=== PATIENT | female | born 1990 | race Hispanic/Latino ===

== ENCOUNTER 2017-09-06 16:06 | Emergency (ER) | payer OTHER ==
[2017-09-06 16:36] LABS: Urine Blood 1+ (NEG); Urine Glucose NEGATIVE (NEG); Urine Protein NEGATIVE (NEG); Urine Specific Gravity 1.015 (1.005-1.030)
[2017-09-06 16:51] LABS: Urine Bacteria LOADED /HPF (<20); Urine Culture Reflex Order NOT NEEDED
[2017-09-06] MEDS ORDERED: KETOROLAC 30 MG/ML INJ ONE (16:56)
[2017-09-06 17:09] LABS: Absolute Lymphocytes (CBC) 2.1 K/uL (0.7-4.9); Absolute Monocytes 0.4 K/uL (0.1-1.3); Absolute Neutrophil 3.7 K/uL (1.8-8.0); Basophils % 0.3 % (0-1.3); Eosinophils % 0.2 % (0-4.4); Hematocrit 31.5 % (36.0-45.0); Lymphocytes % 34.5 % (15.3-44.8); MCH 33.5 pg (27.0-35.0); MCV 100.3 fL (80-100); MPV 8.9 fL (7.6-11.3); RBC Red Blood Cell Count 3.14 M/uL (3.86-4.86)
[2017-09-06] MEDS ORDERED: PROMETHAZINE 25 MG/ML VIAL ONE (17:11)
[2017-09-06] MEDS ORDERED: NA CHLORIDE 0.9% 1,000 ML ONE (17:11)
[2017-09-06 17:15] LABS: BUN Blood Urea Nitrogen 8 mg/dL (6-20); Bicarbonate 25 mEq/L (21-31); Glucose Level 168 mg/dL (65-120); Potassium 3.4 mEq/L (3.6-5.0); Sodium Level 133 mEq/L (135-145)
[2017-09-06 17:31] LABS: Blood Morphology Comment NOT SEEN (NOT SEEN); Platelet Estimate DECR; Urine White Blood Cell Casts OK
--- NOTE | 2017-09-06 17:46 | ER ---
Nurse's Notes [facility] Name: Michell Dias Age: 27 yrs Sex: Female : 1990 Arrival Date: 09/06/2017 Time: 16:08 Bed 28 Private MD: Diagnosis: Headache;Vitamin B12 deficiency anemia;Urinary tract infection, site not specified Presentation: 09/06 16:09 Presenting complaint: Patient states: referred from Urgent Care, headache that started hj Marshall night and today i had chills; reports nausea and vomiting; denies fever;. Transition of care: patient was not received from another setting of care. Onset of symptoms was September 06, 2017. Care prior to arrival: None. 16:09 Method Of Arrival: Ambulatory hj 16:09 Acuity: STEFFANIE 3 hj Triage Assessment: 16:11 Headache History: Denies prior headaches. General: Appears in no apparent distress. hj uncomfortable, Behavior is calm, cooperative, appropriate for age. Pain: Pain currently is 9 out of 10 on a pain scale. Pain began 2-3 days ago. Also complains of nausea. Neuro: Level of Consciousness is awake, alert, obeys commands, Oriented to person, place, time, situation, Appropriate for age. 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 - Social history:: Smoking status: Patient/guardian denies using tobacco. Screenin:11 Abuse screen: Denies threats or abuse. Denies injuries from another. Nutritional hj screening: No deficits noted. Tuberculosis screening: No symptoms or risk factors identified. Fall Risk None identified. Assessment: 16:25 General: Appears in no apparent distress. Behavior is calm, cooperative, appropriate lk1 for age. Pain: Complains of pain in head Pain currently is 6 out of 10 on a pain scale. Neuro: Level of Consciousness is awake, alert, obeys commands, Oriented to person, place, time, situation. 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 Full function Gait is steady, Speech is normal, Facial symmetry appears normal. Cardiovascular: Capillary refill is brisk Patient's skin is warm and dry. Respiratory: Airway is patent Respiratory effort is even, unlabored, Respiratory pattern is regular, symmetrical. GI: Abdomen is non-distended. GI: Reports nausea, vomiting. : No signs and/or symptoms were reported regarding the genitourinary system. EENT: No signs and/or symptoms were reported regarding the EENT system. Derm: No signs and/or symptoms reported regarding the dermatologic system. Musculoskeletal: No signs and/or symptoms reported regarding the musculoskeletal system. Vital Signs: 16:12 BP 104 / 70; Pulse 87; Resp 18; Temp 97.9(TE); Pulse Ox 100% on R/A; Weight 79.83 kg; hj Height 5 ft. 7 in. (170.18 cm); Pain 9/10; 17:30 BP 107 / 64; Pulse 77; Resp 15; Pulse Ox 100% ; Pain 4/10; lk1 18:20 BP 111 / 72; Pulse 74; Resp 14; Pulse Ox 100% on R/A; Pain 0/10; lk1 16:12 Body Mass Index 27.56 (79.83 kg, 170.18 cm) hj [place] Coma Score: 17:47 Eye Response: spontaneous(4). Verbal Response: oriented(5). Motor Response: obeys snw commands(6). Total: 15. ED Course: 16:08 Patient arrived in ED. hj 16:10 Olimpia Marti F[facility]-C [facility]. snw 16:10 Nile Campoverde MD is Attending Physician. snw 16:10 Triage completed. hj 16:11 Arm band placed on right wrist. hj 16:20 Mahsa Hogan, ALEXEI is Primary Nurse. lk1 17:03 Inserted saline lock: 22 gauge in left antecubital area, using aseptic technique. Blood lk1 collected. 17:28 Notified Nurse Practitioner and/or Physician Car Rental Manager of a critical lab result(s), plt la1 91. 18:34 No provider procedures requiring assistance completed. IV discontinued, intact, lk1 bleeding controlled, No redness/swelling at site. Pressure dressing applied. 18:36 Patient has correct armband on for positive identification. Bed in low position. Call lk1 light in reach. Adult w/ patient. Administered Medications: 16:38 Drug: TORadol 60 mg Route: IM; Site: left gluteus; lk1 17:00 Follow up: Response: No adverse reaction; Pain is decreased lk1 18:27 Follow up: Response: No adverse reaction lk1 16:58 Drug: NS 0.9% 1000 ml Route: IV; Rate: 1 bolus; Site: left antecubital; lk1 17:45 Follow up: Response: No adverse reaction; IV Status: Completed infusion lk1 16:58 Drug: Phenergan 6.25 mg Route: IVP; Site: left antecubital; lk1 17:10 Follow up: Response: No adverse reaction; Nausea is decreased lk1 17:20 Drug: Rocephin - (cefTRIAXone) 1 grams Route: IVPB; Infused Over: 30 mins; Site: left lk1 antecubital; 17:50 Follow up: Response: No adverse reaction; IV Status: Completed infusion lk1 18:10 Drug: Cyanocobalamin 1000 mcg Route: IM; Site: right gluteus; lk1 18:26 Follow up: Response: No adverse reaction lk1 Outcome: 17:45 Discharge ordered by MD. morse 18:35 Discharged to home ambulatory. lk1 18:35 Condition: good 18:35 Discharge instructions given to patient, family, Instructed on discharge instructions, follow up and referral plans. medication usage, safety practices, Demonstrated understanding of instructions, follow-up care, medications, Prescriptions given X 3. 18:52 Patient left the ED. lk1 Addendum: 09/09/2017 11:30 Addendum: Culture Results: Positive urine culture. Phone call Attempt #1 Attempted to s s call patient, no answer left voicemail. 17:58 Addendum: Culture Results: patient called back and reports that she is no longer having s s any S/S of UTI and plans to follow up with PCP soon. Signatures: Olimpia Marti, PRODUCT LISTER-C PRODUCT LISTER-Csnw Cristina Mack RN ALEXEI ss Brent Parks RN RN la1 Mookie Ryan RN RN hj Kluge, Leah, RN RN lk1 Corrections: (The following items were deleted from the chart) 09/06 16:14 16:12 Pulse 87bpm; Resp 18bpm; Pulse Ox 100% RA; Temp 97.9F Temporal; 79.83 kg; Height hj 5 ft. 7 in.; BMI: 27.5; Pain 9/10; hj
--- NOTE | 2017-09-06 17:46 | EDPHYS ---
Physician Documentation [facility] Name: Michell Dias Age: 27 yrs Sex: Female : 1990 Arrival Date: 09/06/2017 Time: 16:08 Bed 28 Private MD: ED Physician Nile Campoverde HPI: 09/06 16:49 This 27 yrs old Female presents to ER via Ambulatory with complaints of snw Headache. 16:49 The patient complains of pain to the forehead. The patient describes the headache as snw constant, a pressure. Onset: The symptoms/episode began/occurred suddenly, 3 day(s) ago, and became persistent. Associated signs and symptoms: Pertinent positives: vomited x 1 this am, no trauma, no fever. Severity of symptoms: At its worst the pain was moderate. Headache History: Denies prior headaches. The symptoms are alleviated by nothing. It is unknown whether or not the patient has had similar symptoms in the past. one month ago, dx with uti, no meds, on control, no medication changes. 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 - Social history:: Smoking status: Patient/guardian denies using tobacco. ROS: 16:49 Eyes: Negative for injury, pain, redness, and discharge, ENT: Negative for injury, snw pain, and discharge, Neck: Negative for injury, pain, and swelling, Cardiovascular: Negative for chest pain, palpitations, and edema, Respiratory: Negative for shortness of breath, cough, wheezing, and pleuritic chest pain, Abdomen/GI: Negative for abdominal pain, nausea, vomiting, diarrhea, and constipation, Back: Negative for injury and pain, : Negative for injury, bleeding, discharge, and swelling, MS/Extremity: Negative for injury and deformity, Skin: Negative for injury, rash, and discoloration. 16:49 Constitutional: Positive for body aches, fatigue, malaise. 16:49 Neuro: Positive for headache. Exam: 16:49 Constitutional: This is a well developed, well nourished patient who is awake, alert, snw and in no acute distress. Head/Face: Normocephalic, atraumatic. Eyes: Pupils equal round and reactive to light, extra-ocular motions intact. Lids and lashes normal. Conjunctiva and sclera are non-icteric and not injected. Cornea within normal limits. Periorbital areas with no swelling, redness, or edema. ENT: Nares patent. No nasal discharge, no septal abnormalities noted. Tympanic membranes are normal and external auditory canals are clear. Oropharynx with no redness, swelling, or masses, exudates, or evidence of obstruction, uvula midline. Mucous membranes moist. Neck: Trachea midline, no thyromegaly or masses palpated, and no cervical lymphadenopathy. Supple, full range of motion without nuchal rigidity, or vertebral point tenderness. No Meningismus. Chest/axilla: Normal chest wall appearance and motion. Nontender with no deformity. No lesions are appreciated. Cardiovascular: Regular rate and rhythm with a normal S1 and S2. No gallops, murmurs, or rubs. Normal PMI, no JVD. No pulse deficits. Respiratory: Lungs have equal breath sounds bilaterally, clear to auscultation and percussion. No rales, rhonchi or wheezes noted. No increased work of breathing, no retractions or nasal flaring. Abdomen/GI: Soft, non-tender, with normal bowel sounds. No distension or tympany. No guarding or rebound. No evidence of tenderness throughout. Back: No spinal tenderness. No costovertebral tenderness. Full range of motion. Skin: Warm, dry with normal turgor. Normal color with no rashes, no lesions, and no evidence of cellulitis. MS/ Extremity: Pulses equal, no cyanosis. Neurovascular intact. Full, normal range of motion. 16:49 Neuro: Orientation: is normal, Mentation: is normal, Sensation: is normal, Babinski testing is normal, seizure activity, is not displayed by the patient. Vital Signs: 16:12 BP 104 / 70; Pulse 87; Resp 18; Temp 97.9(TE); Pulse Ox 100% on R/A; Weight 79.83 kg; hj Height 5 ft. 7 in. (170.18 cm); Pain 9/10; 17:30 BP 107 / 64; Pulse 77; Resp 15; Pulse Ox 100% ; Pain 4/10; lk1 18:20 BP 111 / 72; Pulse 74; Resp 14; Pulse Ox 100% on R/A; Pain 0/10; lk1 16:12 Body Mass Index 27.56 (79.83 kg, 170.18 cm) hj [place] Coma Score: 17:47 Eye Response: spontaneous(4). Verbal Response: oriented(5). Motor Response: obeys snw commands(6). Total: 15. MDM: 16:16 Patient medically screened. snw 17:47 Data reviewed: vital signs, nurses notes. Data interpreted: Pulse oximetry: on room air snw is 100 %. Interpretation: normal. Counseling: I had a detailed discussion with the patient and/or guardian regarding: the historical points, exam findings, and any diagnostic results supporting the discharge/admit diagnosis, lab results, the need for outpatient follow up, to return to the emergency department if symptoms worsen or persist or if there are any questions or concerns that arise at home. Special discussion: Based on the history and exam findings, there is no indication for further emergent testing or inpatient evaluation. I discussed with the patient/guardian the need to see the primary care provider for further evaluation of the symptoms. 09/06 16:17 Order name: Urine Culture snw 09/06 16:17 Order name: Urine Microscopic Only; Complete Time: 16:53 snw 09/06 16:33 Order name: Urine Dipstick--Ancillary (enter results); Complete Time: 16:40 bd 09/06 16:33 Order name: Urine --Ancillary (enter results); Complete Time: 16:40 bd 09/06 16:41 Order name: CBC with Diff; Complete Time: 17:33 snw 09/06 16:41 Order name: Chem 7; Complete Time: 17:26 snw 09/06 16:17 Order name: Urine Test (obtain specimen); Complete Time: 16:34 snw 09/06 16:17 Order name: Urine Dipstick-Ancillary (obtain specimen); Complete Time: 16:34 snw 09/06 17:19 Order name: CBC Smear Scan; Complete Time: 17:33 EDMS 09/06 17:01 Order name: IV Start; Complete Time: 17:03 lk1 Administered Medications: 16:38 Drug: TORadol 60 mg Route: IM; Site: left gluteus; lk1 17:00 Follow up: Response: No adverse reaction; Pain is decreased lk1 18:27 Follow up: Response: No adverse reaction lk1 16:58 Drug: NS 0.9% 1000 ml Route: IV; Rate: 1 bolus; Site: left antecubital; lk1 17:45 Follow up: Response: No adverse reaction; IV Status: Completed infusion lk1 16:58 Drug: Phenergan 6.25 mg Route: IVP; Site: left antecubital; lk1 17:10 Follow up: Response: No adverse reaction; Nausea is decreased lk1 17:20 Drug: Rocephin - (cefTRIAXone) 1 grams Route: IVPB; Infused Over: 30 mins; Site: left lk1 antecubital; 17:50 Follow up: Response: No adverse reaction; IV Status: Completed infusion lk1 18:10 Drug: Cyanocobalamin 1000 mcg Route: IM; Site: right gluteus; lk1 18:26 Follow up: Response: No adverse reaction lk1 Disposition: 18:57 Co-signature as Attending Physician, Nile Campoverde MD. rn Disposition: 09/06/17 17:45 Discharged to Home. Impression: Headache, Vitamin B12 deficiency anemia, Urinary tract infection, site not specified. - Condition is Stable. - Discharge Instructions: Anemia, Nonspecific, Dehydration, Adult, Urinary Tract Infection, Vitamin B12 Deficiency, Rehydration, Adult. - Prescriptions for Augmentin 875- 125 mg Oral Tablet - take 1 tablet by ORAL route every 12 hours for 10 days; 20 tablet. Zofran 4 mg Oral Tablet - take 1 tablet by ORAL route every 12 hours As needed; 6 tablet. Vitamin 27- 0.8 mg Oral Tablet - take 1 tablet by ORAL route once daily; 30 tablet. - Work release form, Medication Reconciliation Form, Thank You Letter, Antibiotic Education, Prescription Opioid Use form. - Follow up: Private Physician; When: 2 - 3 days; Reason: Recheck today's complaints, Continuance of care, Re-evaluation by your physician. Follow up: Emergency Department; When: As needed; Reason: Worsening of condition. Signatures: Dispatcher [employer] [facility]SC Olimpia Marti, PAINTER INTERIOR FINISH-C PAINTER INTERIOR FINISH-Csnw Nile Campoverde MD MD rn Joaquin, Henry, RN RN hj Kluge, Leah, RN RN lk1
[2017-09-06] MEDS ORDERED: CEFTRIAXONE/SWI 1gm 1 GM/10 ML SYR ONE (17:53)
[2017-09-06] MEDS ORDERED: CYANOCOBALAMIN 1000MCG/ML INJ IM ONE (18:00)
== END 2017-09-06 18:52 | disposition home or self-care (01) ==
LOC: ER 16:06
DX: N39.0 Urinary tract infection, site not specified (principal); D51.3 Other dietary vitamin B12 deficiency anemia
CPT/HCPCS: 36415; 80048; 81003; 81015; 81025; 85025; 87077; 87086; 87088; 87186; 96365; 96372; 96375; 99284; J0696; J2550; J3420; J7030